=== PATIENT | male | born 2000 | race Caucasian/White ===

== ENCOUNTER 2019-01-21 13:03 | Emergency (ER) | payer OTHER ==
[~2019-01-21] VITALS: Ht 182.9 cm; Wt 81.6 kg
== END 2019-01-21 21:02 | disposition home or self-care (01) ==
LOC: ER 13:03
DX: S61.521A Laceration with foreign body of right wrist, initial encounter (principal); W45.8XXA Other foreign body or object entering through skin, initial encounter; Y93.89 Activity, other specified; Y92.098 Other place in other non-institutional residence as the place of occurrence of the external cause; Y99.8 Other external cause status

== ENCOUNTER 2019-01-29 12:13 | Emergency (ER) | payer OTHER ==
[~2019-01-29] VITALS: Ht 182.9 cm; Wt 81.6 kg
== END 2019-01-29 15:02 | disposition home or self-care (01) ==
LOC: ER 12:13
DX: Z48.02 Encounter for removal of sutures (principal)